=== PATIENT | male | born 1975 | race Two or more races ===

== ENCOUNTER 2022-06-22 17:43 | Emergency (ER) | END 2022-06-22 18:07 | disposition home or self-care (01) | DX: T83.84XA Pain due to genitourinary prosthetic devices, implants and grafts, initial encounter (principal); N52.9 Male erectile dysfunction, unspecified; Z59.00 Homelessness unspecified; Z80.6 Family history of leukemia; Z83.3 Family history of diabetes mellitus; G40.909 Epilepsy, unspecified, not intractable, without status epilepticus; Z79.899 Other long term (current) drug therapy ==